=== PATIENT | male | born 1945 | race Hispanic/Latino ===

== ENCOUNTER 2018-05-26 07:51 | Day surgery (SDC) | payer MEDICARE, MEDICAID ==
[2013-08-03 07:46] VITALS: BMI 25.0
[2018-05-26] MEDS ORDERED: Propofol 10 mg/ml Inj (20 ML) ONE (11:23)
[2018-05-26] MEDS ORDERED: Lidocaine 2% Jelly (Uro-Jet) ONE (11:29)
[2018-05-26] MEDS ORDERED: Ciprofloxacin 400mg/200ml D5W 400 MG/200 ML BAG IVPB ONE (11:29)
[2018-05-26] MEDS ORDERED: Gentamicin 160 MG in Sodium Chloride 0.9% 100 ML IVPB ONE (11:30)
--- NOTE | 2018-05-26 12:27 | PCM.SURG1 ---
Surgeon's Initial Post Op Note - Surgeon's Notes Surgeon: Tyrell Clinical Staff Educator: CATHERINE Type of Anesthesia: General LMA Anesthesia Administered By: STAFF Pre-Operative Diagnosis: BPH SEQUEIRA Operative Findings: same Post-Operative Diagnosis: BPH SEQUEIRA Operation Performed: TULAP Specimen/Specimens Removed: NA Estimated Blood Loss: EBL {In ML}: 0 Blood Products Given: N/A Drains Used: No Drains Post-Op Condition: Good Date of Surgery/Procedure: 05/26/18 Time of Surgery/Procedure: 12:27
[2018-05-26] MEDS ORDERED: HYDROmorphone 0.5 mg/0.5 ml ISec IVP PRN (12:34)
[2018-05-26] MEDS ORDERED: Lactated Ringer's 1,000 ML IV SCH (12:45)
[2018-05-26 14:26] VITALS: PULSE 75; O2SAT 100
[2018-05-26 15:01] VITALS: BP 126/79; RESP 20; TEMP 98.2
--- NOTE | 2018-05-27 00:35 | OP ---
PROCEDURE DATE: 05/26/2018 PREOPERATIVE DIAGNOSES: Benign prostatic hypertrophy with bladder outlet obstruction. POSTOPERATIVE DIAGNOSES: Benign prostatic hypertrophy with bladder outlet obstruction. FINDINGS: Enlarged prostate with significant bladder outlet obstruction and compensatory trabeculation of bladder. DESCRIPTION OF PROCEDURE: As follows: The patient was asked to sign a detailed informed consent after full review of all risks, complications, limitations, and possible benefits of this procedure. The patient is aware that there is no guarantee that good results would be obtained. He was willing to accept the risk, brought into the room, and draped and prepped in the usual manner. Received prophylactic antibiotics after time-out was taken according to the rules and regulations of [facility]. He was cystoscoped with a laser cystoscope. Previous cystoscopic findings were confirmed. The laser fiber was then inserted in the resectoscope element, and the laser vaporization of the prostate was begun at the 11 o'clock, carried down to 6 o'clock from just distal to the bladder neck to just proximal to the verumontanum. The opposite lobe, the base, and the roof were vaporized in similar fashion resulting in excellent voiding trail. There was no significant bleeding. The patient tolerated this procedure very well. The bladder was filled and a #20 two-way 5 mL catheter was inserted and clear irrigant fluid drained. The balloon and the catheter was inflated and the patient was sent to the recovery room in good condition and will be continued on Cipro and follow in our office tomorrow for catheter removal. Anders Santillan MD
== END 2018-05-26 14:40 | disposition home or self-care (01) ==
LOC: C.SDS 07:51
PROVIDERS: ATTEND Urology
DX: N40.1 Benign prostatic hyperplasia with lower urinary tract symptoms (principal); N32.0 Bladder-neck obstruction; N13.8 Other obstructive and reflux uropathy
CPT/HCPCS: 52648; 82948; J0744; J1580